=== PATIENT | male | born 1960 | race Caucasian/White ===

== ENCOUNTER 2023-09-26 11:46 | Day surgery (SDC) | payer MEDICARE ==
[~2023-09-26] VITALS: Ht 185.4 cm; Wt 84.4 kg
[~2023-09-26 11:46] MED LIST: ALBU8.5H INH; ATOR1TAB21 PO; ENTR1TAB4 PO; GABA600T4 PO; ISOS1TAB35 PO; LIDOCAINE 2% 100MG/5ML SDV (FOR ANES.) As Ordered ONE; NITR0.4S14 SL; OMEP40CA5 PO; SPIR-10 PO; SPIR1CAP INH; SUCR1TAB56 PO; WARF-23 PO; propofoL 200 MG/20 ML VIAL As Ordered ONE
[2023-09-26] MEDS ORDERED: LR 1,000 ML IV SCH (12:10)
[2023-09-26 13:06] LABS: INR 2.37
[2023-09-26] MEDS: ceFAZolin 1GM VIAL As Ordered ONE (14:33)
[2023-09-26] MEDS: ceFAZolin SOD 2 GM in IV 1 EA IV ONE (14:45)
[2023-09-26] MEDS: LIDOCAINE 1% MDV 20ML VIAL As Ordered ONE (14:50)
[2023-09-26 15:23] VITALS: BP 122/82; TEMP 97.4; O2SAT 99
== END 2023-09-26 15:34 | disposition home or self-care (01) ==
LOC: M SDC 11:46
PROVIDERS: ATTEND Internal Medicine Cardiovascular Disease
DX: Z45.010 Encounter for checking and testing of cardiac pacemaker pulse generator [battery] (principal); I50.22 Chronic systolic (congestive) heart failure; I25.10 Atherosclerotic heart disease of native coronary artery without angina pectoris; I44.2 Atrioventricular block, complete; I48.0 Paroxysmal atrial fibrillation; I35.9 Nonrheumatic aortic valve disorder, unspecified; I34.9 Nonrheumatic mitral valve disorder, unspecified; Z79.899 Other long term (current) drug therapy; Z79.01 Long term (current) use of anticoagulants
CPT/HCPCS: 33228; 36415; 85610; C1785; J0690